=== PATIENT | female | born 1945 | race African-American/Black ===

== ENCOUNTER 2018-09-02 11:42 | Inpatient (IN) | payer MEDICARE, MEDICAID ==
[~2018-09-02] VITALS: Ht 162.6 cm; Wt 65.3 kg
[2018-09-02] MEDS ORDERED: IBUPROFEN 600MG TABLET PO ONE (12:30)
[2018-09-02] MEDS ORDERED: MORPHINE SULFATE 10 MG/ML CPJ IM ONE (13:15)
[2018-09-02 14:21] LABS: BASOPHILS % 0.5 % (0.0-2.0); EOSINOPHILS % 0.6 % (0.0-5.0); HEMATOCRIT. 38.6 % (36.0-48.0); HEMOGLOBIN. 12.7 g/dL (12.0-16.0); LYMPHOCYTES % 15.4 % (20.0-50.0); MEAN CORPUSCULAR HEMOGLOBIN 30.6 pg (28.0-32.0); MEAN CORPUSCULAR VOLUME 93.3 fL (81.0-99.0); MEAN PLATELET VOLUME 7.4 fl (7.4-10.4); NEUTROPHILS % 75.5 % (40.0-76.0); PLATELET 286 x1000/uL (130-400); RED BLOOD CELL COUNT 4.14 mill/uL (4.2-5.4); RED CELL DISTRIBUTION WIDTH 15.4 % (11.6-14.6)
[2018-09-02 14:26] LABS: CHLORIDE 109 mEq/L (98-107)
[2018-09-02 14:27] LABS: INR 1.1; PROTHROMBIN TIME 10.7 sec (9.1-11.1)
[2018-09-02] MEDS ORDERED: MORPHINE SULFATE 4 MG/ML CPJ (NOT FOR IM USE) IV PRN (14:45)
[2018-09-02] MEDS ORDERED: ACETAMINOPHEN 325MG TABLET PO PRN (14:45)
[2018-09-02] MEDS ORDERED: CLONIDINE 0.1MG TABLET PO PRN (14:45)
[2018-09-02] MEDS ORDERED: ENOXAPARIN 40MG/0.4ML SYR SUBCUT SCH (14:45)
[2018-09-02] MEDS ORDERED: MAGNESIUM/ALUMINUM HYDROXIDE/SIMETHICONE 30ML UDC PO PRN (14:45)
[2018-09-02] MEDS ORDERED: ONDANSETRON HCL 4MG/2ML INJ IV PRN (14:45)
[2018-09-02] MEDS ORDERED: HYDROCODONE/ACETAMINOPHEN 5/325MG TABLET PO PRN (14:45)
[2018-09-02] MEDS ORDERED: CHLORHEXIDINE GLUCONATE 4% EXTERNAL USE TOP SCH (19:00)
[2018-09-02] MEDS ORDERED: TEMAZEPAM 15MG CAPSULE PO ONE (19:00)
[2018-09-03] VITALS: BP 148/79
[2018-09-03] MEDS ORDERED: TEMAZEPAM 15MG CAPSULE PO NR (01:30)
[2018-09-03] MEDS ORDERED: CHLORHEXIDINE GLUCONATE 4% EXTERNAL USE TOP SCH ×2 (02:00→09:00)
[2018-09-03 04:00] VITALS: BP 101/63
[2018-09-03 06:59] VITALS: BP 122/88
[2018-09-03 08:00] VITALS: BP 137/74
[2018-09-03] MEDS ORDERED: HYDROMORPHONE HCL/PF 2MG/ML CPJ IV PRN (08:30)
[2018-09-03] MEDS ORDERED: ONDANSETRON HCL 4MG/2ML INJ IV PRN ×2 (08:30→12:30)
[2018-09-03] MEDS ORDERED: BUPIVACAINE HCL/PF 0.5% (5MG/ML) 10ML ONE (08:30)
[2018-09-03] MEDS ORDERED: FENTANYL CITRATE/PF 50MCG/ML 2ML VIAL IV PRN (08:30)
[2018-09-03] MEDS ORDERED: FENTANYL CITRATE/PF 50MCG/ML 5ML VIAL ONE ×2 (08:48→10:29)
[2018-09-03] MEDS ORDERED: PROPOFOL 200MG/20ML VIAL IV ONE (08:52)
[2018-09-03] MEDS ORDERED: ENOXAPARIN 40MG/0.4ML SYR SUBCUT SCH (09:00)
[2018-09-03] MEDS ORDERED: LIDOCAINE HCL 2% JELLY 5ML ONE (09:24)
[2018-09-03] MEDS ORDERED: VANCOMYCIN HCL 500 MG/VIAL ONE (10:29)
[2018-09-03] MEDS ORDERED: BACITRACIN 50,000 UNITS/VIAL ONE (10:29)
[2018-09-03] MEDS ORDERED: NORMAL SALINE 0.9% 10 ML SYR ONE (10:29)
[2018-09-03] MEDS ORDERED: MAGNESIUM HYDROXIDE 400MG/5ML 30ML UDC PO PRN (12:30)
[2018-09-03] MEDS ORDERED: ACETAMINOPHEN 325MG TABLET PO PRN (12:30)
[2018-09-03] MEDS ORDERED: HYDROCODONE/ACETAMINOPHEN 5/325MG TABLET PO PRN ×2 (12:30)
[2018-09-03] MEDS ORDERED: BACITRACIN ZINC 15GM TUBE TOP ONE (12:37)
[2018-09-03] MEDS ORDERED: HYDROMORPHONE PCA 10MG/50ML IV PRN (13:15)
[2018-09-03] MEDS ORDERED: NALOXONE INJ IV PRN (13:15)
[2018-09-03] MEDS ORDERED: ONDANSETRON INJ IV PRN (13:15)
[2018-09-03] MEDS ORDERED: DIPHENHYDRAMINE INJ IV PRN (13:15)
[2018-09-03 16:00] VITALS: BP 134/74
[2018-09-03] MEDS: DOCUSATE SODIUM 100MG CAPSULE PO SCH (17:18)
[2018-09-03] MEDS: CEFAZOLIN 2,000 MG in DEXT 5% WATER 100 ML IV SCH (17:37)
[2018-09-03] MEDS: FERROUS SULFATE 325MG TABLET PO SCH (17:38)
[2018-09-03 20:00] VITALS: BP 131/83
[2018-09-03] MEDS ORDERED: ZOLPIDEM TARTRATE 5MG TABLET PO PRN (21:00)
[2018-09-04] VITALS: BP 120/78
[2018-09-04] MEDS: CEFAZOLIN 2,000 MG in DEXT 5% WATER 100 ML IV SCH (01:22)
[2018-09-04 04:00] VITALS: BP 131/97
[2018-09-04 07:36] LABS: BASOPHILS % 0.2 % (0.0-2.0); EOSINOPHILS % 0.2 % (0.0-5.0); HEMATOCRIT. 35.3 % (36.0-48.0); HEMOGLOBIN. 11.4 g/dL (12.0-16.0); LYMPHOCYTES % 15.9 % (20.0-50.0); MEAN CORPUSCULAR HEMOGLOBIN 30.3 pg (28.0-32.0); MEAN CORPUSCULAR VOLUME 94.1 fL (81.0-99.0); MEAN PLATELET VOLUME 8.1 fl (7.4-10.4); MONOCYTES % 13.1 % (2.0-8.0); NEUTROPHILS % 70.6 % (40.0-76.0); PLATELET 248 x1000/uL (130-400); RED BLOOD CELL COUNT 3.75 mill/uL (4.2-5.4); RED CELL DISTRIBUTION WIDTH 16.2 % (11.6-14.6)
[2018-09-04 07:56] LABS: CHLORIDE 109 mEq/L (98-107)
[2018-09-04 08:00] VITALS: BP 134/77
[2018-09-04] MEDS: FERROUS SULFATE 325MG TABLET PO SCH ×3 (08:26→17:13)
[2018-09-04] MEDS: DOCUSATE SODIUM 100MG CAPSULE PO SCH ×2 (08:26→17:13)
[2018-09-04] MEDS: ENOXAPARIN 40MG/0.4ML SYR SUBCUT SCH (08:27)
[2018-09-04 12:00] VITALS: BP 131/83
[2018-09-04 16:00] VITALS: BP 142/89
[2018-09-04 20:00] VITALS: BP 128/77
[2018-09-05] VITALS (7 sets, daily range): BP systolic 115–159; BP diastolic 72–94
[2018-09-05 06:13] LABS: BASOPHILS % 0.3 % (0.0-2.0); EOSINOPHILS % 0.6 % (0.0-5.0); HEMATOCRIT. 32.4 % (36.0-48.0); HEMOGLOBIN. 10.8 g/dL (12.0-16.0); LYMPHOCYTES % 12.5 % (20.0-50.0); MEAN CORPUSCULAR VOLUME 93.5 fL (81.0-99.0); MEAN PLATELET VOLUME 8.3 fl (7.4-10.4); MONOCYTES % 13.4 % (2.0-8.0); NEUTROPHILS % 73.2 % (40.0-76.0); PLATELET 254 x1000/uL (130-400); RED BLOOD CELL COUNT 3.47 mill/uL (4.2-5.4); RED CELL DISTRIBUTION WIDTH 15.8 % (11.6-14.6)
[2018-09-05 06:39] LABS: CHLORIDE 109 mEq/L (98-107)
[2018-09-05] MEDS: FERROUS SULFATE 325MG TABLET PO SCH ×3 (09:15→16:22)
[2018-09-05] MEDS: DOCUSATE SODIUM 100MG CAPSULE PO SCH ×2 (09:16→16:22)
[2018-09-05] MEDS: ENOXAPARIN 40MG/0.4ML SYR SUBCUT SCH (09:17)
[2018-09-05] MEDS: PANTOPRAZOLE 40MG DR TABLET PO SCH (16:22)
[2018-09-05] MEDS ORDERED: DOCUSATE SODIUM 100MG CAPSULE PO SCH (17:00)
[2018-09-06] VITALS: BP 128/79
[2018-09-06 04:00] VITALS: BP 140/76
[2018-09-06] MEDS: PANTOPRAZOLE 40MG DR TABLET PO SCH (06:26)
[2018-09-06 08:00] VITALS: BP 138/80
[2018-09-06] MEDS: DOCUSATE SODIUM 100MG CAPSULE PO SCH ×2 (08:34→16:57)
[2018-09-06] MEDS: ENOXAPARIN 40MG/0.4ML SYR SUBCUT SCH (08:34)
[2018-09-06] MEDS: FERROUS SULFATE 325MG TABLET PO SCH ×3 (08:34→16:57)
[2018-09-06 12:40] VITALS: BP 132/82
[2018-09-06 16:00] VITALS: BP 126/83
[2018-09-06] MEDS: LACTULOSE 20G/30ML UDC PO SCH ×2 (16:57→23:00)
[2018-09-06 19:51] LABS: BASOPHILS % 0.6 % (0.0-2.0); EOSINOPHILS % 0.9 % (0.0-5.0); HEMATOCRIT. 33.1 % (36.0-48.0); HEMOGLOBIN. 10.9 g/dL (12.0-16.0); LYMPHOCYTES % 19.9 % (20.0-50.0); MEAN CORPUSCULAR HEMOGLOBIN 30.5 pg (28.0-32.0); MEAN CORPUSCULAR VOLUME 92.8 fL (81.0-99.0); MEAN PLATELET VOLUME 7.8 fl (7.4-10.4); NEUTROPHILS % 66.6 % (40.0-76.0); PLATELET 336 x1000/uL (130-400); RED BLOOD CELL COUNT 3.57 mill/uL (4.2-5.4); RED CELL DISTRIBUTION WIDTH 15.5 % (11.6-14.6)
[2018-09-06 20:00] VITALS: BP 112/80
[2018-09-07] VITALS: BP 120/75
[2018-09-07 04:00] VITALS: BP 105/77
[2018-09-07 08:00] VITALS: BP 121/76
[2018-09-07] MEDS: LACTULOSE 20G/30ML UDC PO SCH (08:27)
[2018-09-07] MEDS: DOCUSATE SODIUM 100MG CAPSULE PO SCH ×2 (08:28→16:12)
[2018-09-07] MEDS: FERROUS SULFATE 325MG TABLET PO SCH ×2 (08:28→12:03)
[2018-09-07] MEDS: ENOXAPARIN 40MG/0.4ML SYR SUBCUT SCH (08:28)
[2018-09-07] MEDS ORDERED: FAMOTIDINE 20MG TABLET PO SCH (09:00)
[2018-09-07 10:35] LABS: CLARITY URINE CLEAR (CLEAR); COLOR URINE DARK YELLOW (YELLOW); KETONES URINE 1+ (NEGATIVE); LEUKOCYTE ESTERASE URINE TRACE (NEGATIVE); NITRITE URINE NEGATIVE (NEGATIVE); OCCULT BLOOD URINE 2+ (NEGATIVE); PROTEIN URINE 1+ (NEGATIVE); SPECIFIC GRAVITY URINE 1.031 (1.005-1.030); UROBILINOGEN URINE 0.2 E.U./dL (0.2-1.0)
[2018-09-07 12:00] VITALS: BP 137/89
[2018-09-07 16:00] VITALS: BP 128/77
[2018-09-07 17:27] VITALS: BP 128/77
== END 2018-09-07 18:30 | disposition short-term general hospital (02) | DRG 313 ==
LOC: ER 11:42 → SUPCPDRO 14:19 → 6EST 14:22 → EDBEDREQTM 14:23 → EDBEDREQ 14:23 → ENRESERV 20:20 → ER 21:12 → 6EST 23:00
PROVIDERS: ADMIT Hospitalist; ATTEND Hospitalist
PROC: 2W3RX1Z Immobilization of Left Lower Leg using Splint (ICD-10-PCS; 2018-09-02)
PROC: 0QSH04Z Reposition Left Tibia with Internal Fixation Device, Open Approach (ICD-10-PCS; principal; 2018-09-03 09:00)
DX: S89.002A Unspecified physeal fracture of upper end of left tibia, initial encounter for closed fracture (principal); E43 Unspecified severe protein-calorie malnutrition; J44.9 Chronic obstructive pulmonary disease, unspecified; D64.9 Anemia, unspecified; I10 Essential (primary) hypertension; S76.112A Strain of left quadriceps muscle, fascia and tendon, initial encounter; M06.9 Rheumatoid arthritis, unspecified; Z96.652 Presence of left artificial knee joint; M85.80 Other specified disorders of bone density and structure, unspecified site; Z60.2 Problems related to living alone; R79.89 Other specified abnormal findings of blood chemistry; R53.81 Other malaise; W01.0XXA Fall on same level from slipping, tripping and stumbling without subsequent striking against object, initial encounter; Y93.89 Activity, other specified; Y92.488 Other paved roadways as the place of occurrence of the external cause; Y99.8 Other external cause status; Z79.899 Other long term (current) drug therapy; Z83.3 Family history of diabetes mellitus; Z68.24 Body mass index [BMI] 24.0-24.9, adult
CPT/HCPCS: 36415; 71045; 71046; 73560; 73590; 80048; 83735; 86850; 86900; 87077; 87186; 93005; 96372; 97162; 97166; 97530; 99285; A4216; C1713; J0690; J1170; J1650; J2270; J2704; J3010; J3370; J3490; J7060; Q4051; A4315

== ENCOUNTER 2018-10-18 08:48 | Inpatient (IN) | payer MEDICARE, MEDICAID ==
[~2018-10-18] VITALS: Ht 160 cm; Wt 67.6 kg
[~2018-10-18 08:48] MED LIST: LACTATED RINGERS 1,000 ML IV SCH
[2018-10-18] MEDS ORDERED: VANCOMYCIN HCL 500 MG/VIAL ONE (11:03)
[2018-10-18] MEDS ORDERED: BUPIVACAINE HCL/PF 0.25% (2.5MG/ML) 10ML ONE (11:03)
[2018-10-18] MEDS ORDERED: BUPIVACAINE/EPINEPH/PF 0.25%/0.0005 10ML ONE (11:03)
[2018-10-18] MEDS ORDERED: BACITRACIN 50,000 UNITS/VIAL ONE (11:04)
[2018-10-18] MEDS ORDERED: NORMAL SALINE 0.9% 10 ML SYR ONE (11:04)
[2018-10-18] MEDS ORDERED: MIDAZOLAM HCL 2 MG/2 ML VIAL ONE (11:50)
[2018-10-18] MEDS ORDERED: PROPOFOL 200MG/20ML VIAL IV ONE (11:50)
[2018-10-18] MEDS ORDERED: FENTANYL CITRATE/PF 50MCG/ML 2ML VIAL ONE (11:50)
[2018-10-18] MEDS ORDERED: SUCCINYLCHOLINE CHLORIDE 200MG/10ML IV ONE (11:51)
[2018-10-18] MEDS ORDERED: GLYCOPYRROLATE 0.2 MG/ML 2ML VIAL ONE (11:51)
[2018-10-18] MEDS ORDERED: ONDANSETRON HCL 4MG/2ML INJ ONE (11:51)
[2018-10-18] MEDS ORDERED: EPHEDRINE SULFATE 50MG/ML VIAL ONE (11:51)
[2018-10-18] MEDS ORDERED: METOCLOPRAMIDE HCL 10MG/2ML VIAL ONE (11:51)
[2018-10-18] MEDS ORDERED: LIDOCAINE HCL/PF 1% 10 MG/ML 5ML VIAL ONE (11:51)
[2018-10-18] MEDS ORDERED: ZOLP5TAB8 PO (12:41)
[2018-10-18] MEDS ORDERED: HYDR-4001 PO (12:41)
[2018-10-18] MEDS ORDERED: MOM PO (12:41)
[2018-10-18] MEDS ORDERED: MULT-1146 PO (12:41)
[2018-10-18] MEDS ORDERED: ASCO-339 PO (12:41)
[2018-10-18] MEDS ORDERED: FAMO20TA8 PO (12:41)
[2018-10-18] MEDS ORDERED: FERR324T11 PO (12:41)
[2018-10-18] MEDS ORDERED: ZINC220T PO (12:41)
[2018-10-18] MEDS ORDERED: ERGO2000 PO (12:41)
[2018-10-18] MEDS ORDERED: DOCU-138 PO (12:41)
[2018-10-18] MEDS ORDERED: ESMOLOL HCL 10MG/ML 10ML VIAL IV ONE (13:20)
[2018-10-18] MEDS ORDERED: ACETAMINOPHEN 325MG TABLET PO PRN (14:15)
[2018-10-18] MEDS ORDERED: HYDROMORPHONE HCL/PF 2MG/ML CPJ IV PRN (14:15)
[2018-10-18] MEDS ORDERED: ZOLPIDEM TARTRATE 5MG TABLET PO PRN (14:15)
[2018-10-18] MEDS ORDERED: MAGNESIUM HYDROXIDE 400MG/5ML 30ML UDC PO PRN (14:15)
[2018-10-18 17:00] VITALS: BP 143/73
[2018-10-18 17:30] VITALS: BP 143/73
[2018-10-18] MEDS ORDERED: IPRATROPIUM/ALBUTEROL 0.5-3(2.5)MG/3ML NEB HHN PRN (17:30)
[2018-10-18 17:37] LABS: BASOPHILS % 0.3 % (0.0-2.0); EOSINOPHILS % 1.3 % (0.0-5.0); HEMATOCRIT. 26.6 % (36.0-48.0); HEMOGLOBIN. 8.7 g/dL (12.0-16.0); LYMPHOCYTES % 18.6 % (20.0-50.0); MEAN CORPUSCULAR HEMOGLOBIN 28.4 pg (28.0-32.0); MEAN CORPUSCULAR VOLUME 86.6 fL (81.0-99.0); MEAN PLATELET VOLUME 6.5 fl (7.4-10.4); MONOCYTES % 10.1 % (2.0-8.0); NEUTROPHILS % 69.7 % (40.0-76.0); PLATELET 667 x1000/uL (130-400); RED BLOOD CELL COUNT 3.07 mill/uL (4.2-5.4); RED CELL DISTRIBUTION WIDTH 17.2 % (11.6-14.6)
[2018-10-18 17:41] LABS: CHLORIDE 101 mEq/L (98-107)
[2018-10-18] MEDS: DOCUSATE SODIUM 100MG CAPSULE PO SCH (18:52)
[2018-10-18] MEDS: CEFAZOLIN 2,000 MG in DEXT 5% WATER 100 ML IV SCH (18:52)
[2018-10-18 20:00] VITALS: BP 149/75
[2018-10-18] MEDS: HYDROMORPHONE HCL/PF 2MG/ML CPJ IM PRN (21:04)
[2018-10-18] MEDS: HYDROCODONE/ACETAMINOPHEN 5/325MG TABLET PO PRN (21:15)
[2018-10-19] VITALS: BP 136/67
[2018-10-19] MEDS: CEFAZOLIN 2,000 MG in DEXT 5% WATER 100 ML IV SCH ×3 (02:16→17:54)
[2018-10-19 04:00] VITALS: BP 157/87
[2018-10-19] MEDS: HYDROCODONE/ACETAMINOPHEN 5/325MG TABLET PO PRN ×3 (04:42→13:53)
[2018-10-19 08:43] VITALS: BP 116/64
[2018-10-19] MEDS: MULTIVITAMINS,THER W-MINERALS TABLET PO SCH (09:07)
[2018-10-19] MEDS: ZINC SULFATE 220 MG ( 50 ) CAPSULE PO SCH (09:08)
[2018-10-19] MEDS: DOCUSATE SODIUM 100MG CAPSULE PO SCH ×2 (09:08→17:53)
[2018-10-19] MEDS: ENOXAPARIN 40MG/0.4ML SYR SUBCUT SCH (09:08)
[2018-10-19] MEDS: ASCORBIC ACID 500 MG TABLET PO SCH (09:08)
[2018-10-19 11:53] VITALS: BP 131/56
[2018-10-19 16:10] VITALS: BP 111/66
[2018-10-19 20:00] VITALS: BP 138/79
[2018-10-20] VITALS: BP 148/77
[2018-10-20] MEDS: HYDROCODONE/ACETAMINOPHEN 5/325MG TABLET PO PRN ×3 (00:24→10:04)
[2018-10-20] MEDS: CEFAZOLIN 2,000 MG in DEXT 5% WATER 100 ML IV SCH ×3 (01:40→19:58)
[2018-10-20 04:00] VITALS: BP 136/77
[2018-10-20 08:00] VITALS: BP 129/74
[2018-10-20] MEDS: ASCORBIC ACID 500 MG TABLET PO SCH (09:29)
[2018-10-20] MEDS: MULTIVITAMINS,THER W-MINERALS TABLET PO SCH (09:29)
[2018-10-20] MEDS: ZINC SULFATE 220 MG ( 50 ) CAPSULE PO SCH (09:29)
[2018-10-20] MEDS: DOCUSATE SODIUM 100MG CAPSULE PO SCH ×2 (09:29→17:00)
[2018-10-20] MEDS: ENOXAPARIN 40MG/0.4ML SYR SUBCUT SCH (09:30)
[2018-10-20 12:00] VITALS: BP 147/76
[2018-10-20 16:00] VITALS: BP 156/66
[2018-10-20 20:00] VITALS: BP 156/79
[2018-10-21] VITALS: BP 165/95
[2018-10-21] MEDS: HYDROMORPHONE HCL/PF 2MG/ML CPJ IM PRN (00:46)
[2018-10-21] MEDS: CEFAZOLIN 2,000 MG in DEXT 5% WATER 100 ML IV SCH ×2 (01:57→10:01)
[2018-10-21 04:00] VITALS: BP 128/81
[2018-10-21 08:00] VITALS: BP 103/82
[2018-10-21] MEDS: ASCORBIC ACID 500 MG TABLET PO SCH (10:01)
[2018-10-21] MEDS: MULTIVITAMINS,THER W-MINERALS TABLET PO SCH (10:01)
[2018-10-21] MEDS: DOCUSATE SODIUM 100MG CAPSULE PO SCH (10:01)
[2018-10-21] MEDS: ENOXAPARIN 40MG/0.4ML SYR SUBCUT SCH (10:02)
[2018-10-21] MEDS: ZINC SULFATE 220 MG ( 50 ) CAPSULE PO SCH (10:02)
[2018-10-21 11:38] VITALS: BP 143/82
[2018-10-21 12:00] VITALS: BP 152/78
== END 2018-10-21 14:30 | DRG 794 ==
LOC: OR 08:48 → 6EST 08:49
PROVIDERS: ADMIT Orthopaedic Surgery; ATTEND Orthopaedic Surgery
PROC: 0JBP0ZZ Excision of Left Lower Leg Subcutaneous Tissue and Fascia, Open Approach (ICD-10-PCS; 2018-10-18)
PROC: 0S9C3ZZ Drainage of Right Knee Joint, Percutaneous Approach (ICD-10-PCS; 2018-10-18)
PROC: 0JQP0ZZ Repair Left Lower Leg Subcutaneous Tissue and Fascia, Open Approach (ICD-10-PCS; principal; 2018-10-18 11:30)
DX: T81.30XA Disruption of wound, unspecified, initial encounter (principal); L97.929 Non-pressure chronic ulcer of unspecified part of left lower leg with unspecified severity; D64.9 Anemia, unspecified; M06.9 Rheumatoid arthritis, unspecified; M10.9 Gout, unspecified; M25.461 Effusion, right knee; M17.11 Unilateral primary osteoarthritis, right knee; X58.XXXA Exposure to other specified factors, initial encounter; Z96.652 Presence of left artificial knee joint; Y93.89 Activity, other specified; Y92.89 Other specified places as the place of occurrence of the external cause; Y99.8 Other external cause status
CPT/HCPCS: 36415; 71045; 73552; 73560; 80048; 87070; 87075; 89060; 97110; 97162; 97166; 97530; A4216; J0171; J0330; J0690; J1170; J1650; J2250; J2405; J2704; J2765; J3010; J3370; J3490; J7060

== ENCOUNTER 2019-05-18 17:07 | Inpatient (IN) | payer MEDICARE, MEDICAID ==
[~2019-05-18] VITALS: Ht 315 cm; Wt 69.9 kg
[2019-05-18] MEDS ORDERED: HYDROCODONE/ACETAMINOPHEN 5/325MG TABLET PO ONE (17:30)
[2019-05-18] MEDS ORDERED: SODIUM CHLORIDE 0.9% 1,000 ML IV ONE (18:50)
[2019-05-18 19:13] LABS: BASOPHILS % 0.7 % (0.0-2.0); EOSINOPHILS % 2.3 % (0.0-5.0); HEMATOCRIT. 28.1 % (36.0-48.0); HEMOGLOBIN. 9.1 g/dL (12.0-16.0); LYMPHOCYTES % 17.5 % (20.0-50.0); MEAN CORPUSCULAR HEMOGLOBIN 27.7 pg (28.0-32.0); MEAN PLATELET VOLUME 5.9 fl (7.4-10.4); MONOCYTES % 7.2 % (2.0-8.0); NEUTROPHILS % 72.3 % (40.0-76.0); RED BLOOD CELL COUNT 3.27 mill/uL (4.2-5.4); RED CELL DISTRIBUTION WIDTH 21.9 % (11.6-14.6)
[2019-05-18 19:16] LABS: CHLORIDE 102 mEq/L (98-107)
[2019-05-18] MEDS ORDERED: DOCUSATE SODIUM 100MG CAPSULE PO PRN (22:15)
[2019-05-18] MEDS ORDERED: MAGNESIUM/ALUMINUM HYDROXIDE/SIMETHICONE 30ML UDC PO PRN (22:15)
[2019-05-18] MEDS ORDERED: ACETAMINOPHEN 325MG TABLET PO PRN (22:15)
[2019-05-18] MEDS ORDERED: GUAIFENESIN 200MG/10ML SUGAR FREE UDC PO PRN (22:15)
[2019-05-18] MEDS ORDERED: IPRATROPIUM/ALBUTEROL 0.5-3(2.5)MG/3ML NEB INH PRN (22:15)
[2019-05-18] MEDS ORDERED: CLONIDINE 0.1MG TABLET PO PRN (22:15)
[2019-05-18 23:57] VITALS: BP 133/71
[2019-05-19] VITALS: BP 133/71
[2019-05-19 04:00] VITALS: BP 140/81
[2019-05-19] MEDS: HYDROCODONE/ACETAMINOPHEN 5/325MG TABLET PO PRN ×4 (04:00→18:29)
[2019-05-19 06:59] LABS: CHLORIDE 103 mEq/L (98-107)
[2019-05-19 07:09] LABS: BASOPHILS % 0.7 % (0.0-2.0); EOSINOPHILS % 2.9 % (0.0-5.0); HEMATOCRIT. 24.9 % (36.0-48.0); HEMOGLOBIN. 8.2 g/dL (12.0-16.0); LYMPHOCYTES % 16.3 % (20.0-50.0); MEAN CORPUSCULAR HEMOGLOBIN 28.5 pg (28.0-32.0); MEAN CORPUSCULAR VOLUME 86.4 fL (81.0-99.0); MEAN PLATELET VOLUME 6.1 fl (7.4-10.4); MONOCYTES % 7.7 % (2.0-8.0); NEUTROPHILS % 72.4 % (40.0-76.0); RED BLOOD CELL COUNT 2.88 mill/uL (4.2-5.4); RED CELL DISTRIBUTION WIDTH 21.8 % (11.6-14.6)
[2019-05-19 07:15] LABS: PLATELET 1048 x1000/uL (130-400)
[2019-05-19 08:00] VITALS: BP 115/67
[2019-05-19] MEDS: ENOXAPARIN 40MG/0.4ML SYR SUBCUT SCH (08:36)
[2019-05-19] MEDS ORDERED: POTASSIUM CHLORIDE 20MEQ TABLET SR PO NR (11:00)
[2019-05-19 11:56] LABS: PLATELET 1112 x1000/uL (130-400)
[2019-05-19 20:00] VITALS: BP 135/73
[2019-05-20] VITALS: BP 113/71
[2019-05-20] MEDS: HYDROCODONE/ACETAMINOPHEN 5/325MG TABLET PO PRN ×3 (03:18→19:51)
[2019-05-20 04:00] VITALS: BP 129/63
[2019-05-20 07:28] LABS: CHLORIDE 105 mEq/L (98-107)
[2019-05-20 07:31] LABS: BASOPHILS % 0.7 % (0.0-2.0); EOSINOPHILS % 3.3 % (0.0-5.0); HEMATOCRIT. 24.3 % (36.0-48.0); HEMOGLOBIN. 7.7 g/dL (12.0-16.0); LYMPHOCYTES % 21.5 % (20.0-50.0); MEAN CORPUSCULAR HEMOGLOBIN 27.5 pg (28.0-32.0); MEAN CORPUSCULAR VOLUME 86.4 fL (81.0-99.0); MEAN PLATELET VOLUME 6.2 fl (7.4-10.4); MONOCYTES % 12.1 % (2.0-8.0); NEUTROPHILS % 62.4 % (40.0-76.0); PLATELET 951 x1000/uL (130-400); RED BLOOD CELL COUNT 2.81 mill/uL (4.2-5.4); RED CELL DISTRIBUTION WIDTH 21.9 % (11.6-14.6)
[2019-05-20 07:46] LABS: HAPTOGLOBIN 411 mg/dL (30-200)
[2019-05-20 08:00] VITALS: BP 159/78
[2019-05-20] MEDS: ENOXAPARIN 40MG/0.4ML SYR SUBCUT SCH (08:25)
[2019-05-20 12:24] VITALS: BP 102/72
[2019-05-20 16:00] VITALS: BP 155/80
[2019-05-20 20:00] VITALS: BP 143/65
[2019-05-21] VITALS: BP 110/65
[2019-05-21] MEDS: HYDROCODONE/ACETAMINOPHEN 5/325MG TABLET PO PRN (03:40)
[2019-05-21 04:00] VITALS: BP 124/67
[2019-05-21 07:31] LABS: BASOPHILS % 0.7 % (0.0-2.0); HEMATOCRIT. 25.6 % (36.0-48.0); HEMOGLOBIN. 8.2 g/dL (12.0-16.0); LYMPHOCYTES % 18.2 % (20.0-50.0); MEAN CORPUSCULAR HEMOGLOBIN 27.8 pg (28.0-32.0); MEAN CORPUSCULAR VOLUME 86.6 fL (81.0-99.0); MEAN PLATELET VOLUME 6.2 fl (7.4-10.4); NEUTROPHILS % 66.1 % (40.0-76.0); PLATELET 943 x1000/uL (130-400); RED BLOOD CELL COUNT 2.96 mill/uL (4.2-5.4); RED CELL DISTRIBUTION WIDTH 21.6 % (11.6-14.6)
[2019-05-21 07:41] LABS: CHLORIDE 101 mEq/L (98-107)
[2019-05-21 08:00] VITALS: BP 118/67
[2019-05-21 09:11] LABS: IMMUNOGLOBULIN A 1071 mg/dL (64-422); IMMUNOGLOBULIN G 1727 mg/dL (700-1600); IMMUNOGLOBULIN M 79 mg/dL (26-217)
[2019-05-21] MEDS: ENOXAPARIN 40MG/0.4ML SYR SUBCUT SCH (09:59)
[2019-05-21 12:25] VITALS: BP 118/70
[2019-05-21 16:09] VITALS: BP 121/74
[2019-05-21 20:00] VITALS: BP 125/78
[2019-05-22] VITALS: BP 159/88
[2019-05-22] MEDS: HYDROCODONE/ACETAMINOPHEN 5/325MG TABLET PO PRN ×3 (02:27→20:39)
[2019-05-22 04:00] VITALS: BP 154/90
[2019-05-22 08:00] VITALS: BP 116/75
[2019-05-22] MEDS: ENOXAPARIN 40MG/0.4ML SYR SUBCUT SCH (09:13)
[2019-05-22 12:00] VITALS: BP 121/77
[2019-05-22 16:00] VITALS: BP 137/86
[2019-05-22 20:00] VITALS: BP 142/94
[2019-05-23] VITALS: BP 140/77
[2019-05-23] MEDS: HYDROCODONE/ACETAMINOPHEN 5/325MG TABLET PO PRN ×2 (03:03→11:45)
[2019-05-23 04:00] VITALS: BP 131/75
[2019-05-23 08:00] VITALS: BP 144/89
[2019-05-23] MEDS: ENOXAPARIN 40MG/0.4ML SYR SUBCUT SCH (09:14)
[2019-05-23 12:00] VITALS: BP 151/92
[2019-05-23 16:33] VITALS: BP 132/82
[2019-05-23 16:39] VITALS: BP 104/66
== END 2019-05-23 17:15 | DRG 342 ==
LOC: ER 17:07 → 6EST 19:57 → EDBEDREQTM 20:00 → EDBEDREQ 20:00 → EDBEDREQSVC 20:00 → ENRESERV 22:19
PROVIDERS: ADMIT Specialist; ATTEND Specialist
DX: S82.109A Unspecified fracture of upper end of unspecified tibia, initial encounter for closed fracture (principal); E43 Unspecified severe protein-calorie malnutrition; D64.9 Anemia, unspecified; M06.9 Rheumatoid arthritis, unspecified; D47.3 Essential (hemorrhagic) thrombocythemia; Z96.619 Presence of unspecified artificial shoulder joint; M19.90 Unspecified osteoarthritis, unspecified site; G89.29 Other chronic pain; Z96.652 Presence of left artificial knee joint; I10 Essential (primary) hypertension; E87.6 Hypokalemia; M81.0 Age-related osteoporosis without current pathological fracture; Z91.81 History of falling; Z99.3 Dependence on wheelchair; Z68.1 Body mass index [BMI] 19.9 or less, adult; Z79.899 Other long term (current) drug therapy
CPT/HCPCS: 36415; 71045; 73502; 73560; 73600; 73700; 80048; 82784; 83010; 83615; 83735; 84100; 84443; 86334; 87077; 87186; 93005; 93971; 97167; 99291; J1650; J7030; A4315

== ENCOUNTER → 2019-05-18 | Outpatient (CLI) | payer MEDICARE, MEDICAID | END | disposition home or self-care (01) | LOC: MRI 07:57 | PROVIDERS: ATTEND Specialist | DX: S82.122K Displaced fracture of lateral condyle of left tibia, subsequent encounter for closed fracture with nonunion (principal); X58.XXXD Exposure to other specified factors, subsequent encounter | CPT/HCPCS: 73560 ==

== ENCOUNTER → 2019-07-12 | Outpatient (CLI) | payer MEDICARE, MEDICAID | END | disposition home or self-care (01) | LOC: CT 11:21 | PROVIDERS: ATTEND Orthopaedic Surgery | DX: S72.402S Unspecified fracture of lower end of left femur, sequela (principal); X58.XXXS Exposure to other specified factors, sequela | CPT/HCPCS: 73700 ==

== ENCOUNTER → 2019-08-02 | Day surgery (SDC) | payer MEDICARE, MEDICAID ==
[~2019-08-02] MED LIST changes: -LACTATED RINGERS 1,000 ML IV SCH; +LIDOCAINE HCL 1% 20ML VIAL (Pyxis) INJ ONE; +SODIUM BICARBONATE 4% (2.4MEQ) 5ML VIAL IV ONE
== END | disposition home or self-care (01) ==
LOC: RAD 10:09
PROVIDERS: ATTEND Specialist
DX: M25.562 Pain in left knee (principal)
CPT/HCPCS: 76881; J3490